=== PATIENT | female | born 1995 | race Caucasian/White ===

== ENCOUNTER 2021-11-09 23:46 | Emergency (ER) | payer OTHER ==
[2021-11-09 23:59] VITALS: PULSE 90; BMI 25.7
[2021-11-10 02:45] VITALS: BP 131/84; RESP 19; TEMP 98.2
== END 2021-11-10 03:25 | disposition home or self-care (01) ==
LOC: JER 23:46
DX: F10.920 Alcohol use, unspecified with intoxication, uncomplicated (principal); W19.XXXA Unspecified fall, initial encounter; Y92.9 Unspecified place or not applicable
CPT/HCPCS: 82962; 84703; 93005; 93010; 99283-25